=== PATIENT | male | born 1965 | race African-American/Black ===

== ENCOUNTER 2017-02-14 14:58 | Emergency (ER) | payer MEDICARE, OTHER ==
[~2017-02-14] VITALS: Ht 170.2 cm; Wt 81.2 kg
--- NOTE | ~2017-02-14 | EKG ---
PATIENT: HIRA PERAZA UNIT #: [id number] Ventricular Rate: 42 BPM Atrial Rate: 30 BPM QRS Duration: 88 ms Q-T Interval: 608 ms QTC Calculation(Bezet): 507 ms Calculated R [place]: 71 degrees Calculated T [place]: -44 degrees Diagnosis Line: Junctional bradycardia Diagnosis Line: Voltage criteria for left ventricular hypertrophy Diagnosis Line: T wave abnormality, consider inferolateral Diagnosis Line: ischemia Diagnosis Line: Prolonged QT Diagnosis Line: Abnormal ECG Diagnosis Line: No previous ECGs available Diagnosis Line: Confirmed by DAVINA ARREGUIN MD ([id number]) on Diagnosis Line: 02/14/2017 5:12:16 PM INTERPRETING MD: RODRÍGUEZ KRAUSE
== END 2017-02-14 17:50 | disposition left against medical advice (07) ==
LOC: CED 14:58
DX: Z53.21 Procedure and treatment not carried out due to patient leaving prior to being seen by health care provider (principal)
CPT/HCPCS: 93005; J1100; J2765

== ENCOUNTER 2017-02-16 19:27 | Emergency (ER) | payer MEDICARE, OTHER ==
[~2017-02-16] VITALS: Ht 171.4 cm; Wt 81.2 kg
--- NOTE | ~2017-02-16 | EKG ---
PATIENT: HIRA PERAZA UNIT #: [id number] Ventricular Rate: 46 BPM Atrial Rate: 46 BPM P-R Interval: 188 ms QRS Duration: 94 ms Q-T Interval: 490 ms QTC Calculation(Bezet): 428 ms P [place]: 73 degrees Calculated R [place]: 54 degrees Calculated T [place]: -38 degrees Diagnosis Line: Sinus bradycardia Diagnosis Line: Possible Left atrial enlargement Diagnosis Line: T wave abnormality, consider inferolateral Diagnosis Line: ischemia Diagnosis Line: Abnormal ECG Diagnosis Line: When compared with ECG of 14-FEB-2017 15:25, Diagnosis Line: Sinus rhythm has replaced Junctional rhythm Diagnosis Line: QT has shortened Diagnosis Line: Confirmed by MARTINEZ CARTY MD ([id number]) on Diagnosis Line: 02/17/2017 7:32:05 AM INTERPRETING MD: CARLOZ KRAUSE
[2017-02-16 21:42] LABS: BASOPHIL# 0.1 X10e3 (0-0.3); BASOPHIL% 1.1 % (0-2.5); EOSINOPHIL# 0.1 X10e3 (0-0.7); EOSINOPHIL% 2.8 % (0.0-7.0); HEMATOCRIT 42.2 % (38.0-50.0); HEMOGLOBIN 13.7 gm/dL (13.0-16.0); LYMPHOCYTE# 2.2 X10e3 (1.0-3.5); LYMPHOCYTE% 43.6 % (17.0-45.0); MEAN CELL VOLUME 95.6 FL (83-96); MEAN CORPUSCULAR HGB CONC 32.5 g/dL (30-36); MONOCYTE# 0.4 X10e3 (0-1.0); MONOCYTE% 7.4 % (3.0-12.0); NEUTROPHIL# 2.3 X10e3 (1.5-7.1); NEUTROPHIL% 45.1 % (40-75); PLATELET COUNT 142 X10e3 (140-420); RED BLOOD COUNT 4.41 X10e (3.90-5.60); RED CELL DISTRIBUTION WIDTH 14.9 % (11.0-15.5)
[2017-02-16 21:44] LABS: DIFF IND NO
[2017-02-16 22:47] LABS: ALBUMIN SERUM 3.7 g/dL (3.5-5.0); BILIRUBIN, DIRECT 0.1 mg/dL (0.0-0.2); BILIRUBIN,INDIRECT 0.6 mg/dL (0.0-0.9); BILIRUBIN,TOTAL 0.7 mg/dL (0.2-2.0); BUN/CREATININE RATIO 11.53; CALCIUM SERUM 8.7 mg/dL (8.4-10.2); CREATININE SERUM 1.3 mg/dL (0.6-1.4); GLOM FILT RATE Estimated 72.2 mL/min (>60); POTASSIUM 3.3 mmol/L (3.5-5.1); PROTEIN TOTAL SERUM 7.3 g/dL (6.0-8.3)
== END 2017-02-16 23:23 | disposition home or self-care (01) ==
LOC: CED 19:27
PROVIDERS: Emergency Medicine
DX: H81.10 Benign paroxysmal vertigo, unspecified ear (principal); Z76.0 Encounter for issue of repeat prescription; I10 Essential (primary) hypertension
CPT/HCPCS: 36415; 80048; 80076; 85025; 93005; 96361; 96374; 96375; 99284